=== PATIENT | male | born 1980 | race African-American/Black ===

== ENCOUNTER 2022-09-02 13:02 | Emergency (ER) | payer MEDICAID ==
[~2022-09-02] VITALS: Ht 170.2 cm; Wt 80.0 kg
[2022-09-02 13:28] VITALS: BP 131/74
== END 2022-09-02 17:51 | disposition home or self-care (01) ==
LOC: ER 13:02
DX: Z04.89 Encounter for examination and observation for other specified reasons (principal); K40.90 Unilateral inguinal hernia, without obstruction or gangrene, not specified as recurrent
CPT/HCPCS: 99281